=== PATIENT | female | born 1995 | race African-American/Black ===

== ENCOUNTER 2017-08-26 05:23 | Inpatient (IN) | payer BC ==
[~2017-08-26] VITALS: Ht 172.7 cm; Wt 73.2 kg
[2017-08-26] MEDS ORDERED: OXYTOCIN 30U/ 0.9% NaCL 500ML 500 ML IV PRN (05:44)
[2017-08-26] MEDS ORDERED: D5%-LACTATED RINGERS 1,000 ML IV SCH (05:44)
[2017-08-26] MEDS ORDERED: OXYTOCIN 30U/ 0.9% NaCL 500ML 500 ML IV ONE (05:44)
[2017-08-26] MEDS: LACTATED RINGERS 1,000 ML IV SCH ×4 (05:54→18:45)
[2017-08-26] MEDS ORDERED: NEWBORN KIT ONE (05:59)
[2017-08-26] MEDS ORDERED: OXYTOCIN 30U/ 0.9% NaCL 500ML 500 ML ONE ×2 (06:00→16:40)
[2017-08-26] MEDS ORDERED: TERBUTALINE 1 MG/ML, 1ML IVPush PRN ×2 (06:00)
[2017-08-26] MEDS ORDERED: CALCIUM CARBONATE 500 MG TAB.CHEW PO PRN (06:00)
[2017-08-26] MEDS ORDERED: TERBUTALINE 1 MG/ML, 1ML SQ PRN (06:00)
[2017-08-26] MEDS ORDERED: FENTANYL PF 100 MCG/2ML IV PRN (06:00)
[2017-08-26] MEDS ORDERED: ONDANSETRON 2MG/ML, 2ML IVPush PRN (06:00)
[2017-08-26 06:28] LABS: BASOPHILS # (AUTO) 0.03 x10^3/uL (0-0.1); BASOPHILS % (AUTO) 0 % (0-1); EOSINOPHILS # (AUTO) 0.08 x10^3/uL (0-0.4); EOSINOPHILS % (AUTO) 1 % (1-7); LYMPHOCYTES # (AUTO) 1.32 x10^3/uL (1-3.4); LYMPHOCYTES % (AUTO) 15 % (22-44); MD NO; MEAN CORPUSCULAR HEMOGLOBIN 25.3 pg (27.0-34.8); MEAN CORPUSCULAR HGB CONC 32.9 g/dL (32.4-35.8); MEAN CORPUSCULAR VOLUME 76.9 fL (80-100); MEAN PLATELET VOLUME 9.1 fL (7.4-10.4); MONOCYTES # (AUTO) 0.91 x10^3/uL (0.2-0.8); MONOCYTES % (AUTO) 10 % (2-9); NEUTROPHILS # (AUTO) 6.58 x10^3/uL (1.8-6.8); NEUTROPHILS % (AUTO) 74 % (42-75); PLATELET COUNT 230 x10^3/uL (130-400); RED BLOOD COUNT 5.01 x10^6/uL (3.82-5.3); RED CELL DISTRIBUTION WIDTH 16.6 % (9.6-15.2)
[2017-08-26 06:35] VITALS: BP 117/68
[2017-08-26] MEDS ORDERED: FENTANYL PF 100 MCG/2ML ONE ×2 (08:43→09:44)
[2017-08-26] MEDS: FENTANYL PF 100 MCG/2ML IVPush PRN ×2 (08:45→09:50)
[2017-08-26] MEDS ORDERED: LIDOCAINE-MPF 2% ,5ML ONE (10:13)
[2017-08-26] MEDS ORDERED: FENTANYL/BUPIV./NS/PF 250 ML EPIDCONT ONE (10:14)
[2017-08-26] MEDS ORDERED: BUPIVACAINE 0.25% ONE (10:15)
[2017-08-26] MEDS ORDERED: FENTANYL/BUPIV./NS/PF 250 ML EPIDCONT SCH (10:45)
[2017-08-26] MEDS ORDERED: EPHEDRINE 50 MG/ML, 1ML IVPush PRN (11:00)
[2017-08-26] MEDS ORDERED: NALOXONE 0.4 MG/ML, 1ML IVPush PRN (11:00)
[2017-08-26] MEDS ORDERED: LACTATED RINGERS 1,000 ML IVBOLUS PRN (11:00)
[2017-08-26] MEDS ORDERED: MEASLES,MUMPS&RUBELLA VACC/PF 0.5 ML SQ PRN (15:30)
[2017-08-26] MEDS ORDERED: RHOGAM FROM BLOOD BANK 1 NOTE EA IM/IV ONE (15:30)
[2017-08-26] MEDS ORDERED: OXYcodone/APAP 5/325MG TABLET PO PRN ×2 (15:30)
[2017-08-26] MEDS ORDERED: MISOPROSTOL 200 MCG TABLET PR PRN (15:30)
[2017-08-26] MEDS ORDERED: CARBOPROST TROMETHAMINE 250 MCG/ML, 1ML IM PRN (15:30)
[2017-08-26] MEDS ORDERED: METHYLERGONOVINE 0.2 MG/ML IM PRN (15:30)
[2017-08-26] MEDS ORDERED: ACETAMINOPHEN 325 MG TABLET PO PRN (15:30)
[2017-08-26] MEDS ORDERED: DIPH,PERTUSS(ACELL),TET VAC/PF NC IM-VACC PRN (15:30)
[2017-08-26] MEDS: OXYTOCIN 30U/ 0.9% NaCL 500ML 500 ML IV SCH (16:42)
[2017-08-26 17:20] VITALS: BP 110/70
[2017-08-26 19:15] VITALS: BP 117/68
[2017-08-26] MEDS: IBUPROFEN 600 MG TABLET PO PRN (20:16)
[2017-08-26] MEDS: DOCUSATE 100 MG CAPSULE PO PRN (20:16)
[2017-08-26] MEDS ORDERED: FLU VACC QS2017-18 (36MOS+) UP/PF 0.5 ML IM-VACC ONE (23:00)
[2017-08-27 00:15] VITALS: BP 122/76
[2017-08-27] MEDS: OXYTOCIN 30U/ 0.9% NaCL 500ML 500 ML IV SCH (01:14)
[2017-08-27 04:00] VITALS: BP 108/71
[2017-08-27] MEDS: IBUPROFEN 600 MG TABLET PO PRN ×2 (04:49→11:25)
[2017-08-27 05:27] LABS: BASOPHILS # (AUTO) 0.03 x10^3/uL (0-0.1); BASOPHILS % (AUTO) 0 % (0-1); EOSINOPHILS # (AUTO) 0.07 x10^3/uL (0-0.4); EOSINOPHILS % (AUTO) 1 % (1-7); LYMPHOCYTES # (AUTO) 1.26 x10^3/uL (1-3.4); LYMPHOCYTES % (AUTO) 10 % (22-44); MD NO; MEAN CORPUSCULAR HEMOGLOBIN 25.5 pg (27.0-34.8); MEAN CORPUSCULAR HGB CONC 32.8 g/dL (32.4-35.8); MEAN CORPUSCULAR VOLUME 77.6 fL (80-100); MEAN PLATELET VOLUME 9.4 fL (7.4-10.4); MONOCYTES # (AUTO) 0.97 x10^3/uL (0.2-0.8); MONOCYTES % (AUTO) 8 % (2-9); NEUTROPHILS # (AUTO) 9.87 x10^3/uL (1.8-6.8); NEUTROPHILS % (AUTO) 81 % (42-75); PLATELET COUNT 200 x10^3/uL (130-400); RED BLOOD COUNT 4.47 x10^6/uL (3.82-5.3); RED CELL DISTRIBUTION WIDTH 16.7 % (9.6-15.2)
[2017-08-27] MEDS: LACTATED RINGERS 1,000 ML IV SCH (05:58)
[2017-08-27 08:00] VITALS: BP 108/72
[2017-08-27] MEDS ORDERED: PRENATAL VIT/IRON/FA 1 EACH TABLET PO SCH (09:00)
[2017-08-27] MEDS: DOCUSATE 100 MG CAPSULE PO PRN (11:25)
[2017-08-27 13:00] VITALS: BP 110/72
[2017-08-27] MEDS ORDERED: FLU VACC QS2017-18 (36MOS+) UP/PF 0.5 ML IM-VACC ONE (16:22)
== END 2017-08-27 17:22 | disposition home or self-care (01) | DRG 775 ==
LOC: LDIP 05:23 → 2NW 17:13
PROVIDERS: ADMIT Obstetrics & Gynecology Maternal & Fetal Medicine; ATTEND Obstetrics & Gynecology Maternal & Fetal Medicine
PROC: 10E0XZZ Delivery of Products of Conception, External Approach (ICD-10-PCS; principal; 2017-08-26)
PROC: 10H07YZ Insertion of Other Device into Products of Conception, Via Natural or Artificial Opening (ICD-10-PCS; 2017-08-26)
PROC: 0UQMXZZ Repair Vulva, External Approach (ICD-10-PCS; 2017-08-26)
DX: O71.82 Other specified trauma to perineum and vulva (principal); Z37.0 Single live birth; Z3A.40 40 weeks gestation of pregnancy
CPT/HCPCS: 36415; 85025; 86850; 86900; 90686; 90715; J3010; J3490; J2590; J7120

== ENCOUNTER 2018-04-05 18:18 | Emergency (ER) | payer OTHER ==
[~2018-04-05] VITALS: Ht 172.7 cm; Wt 72.5 kg
[2018-04-05 18:59] LABS: MEAN CORPUSCULAR HEMOGLOBIN 28.4 pg (27.0-34.8); MEAN CORPUSCULAR HGB CONC 34.1 g/dL (32.4-35.8); MEAN CORPUSCULAR VOLUME 83.4 fL (80-100); PLATELET COUNT 249 x10^3/uL (130-400); RED BLOOD COUNT 5.49 x10^6/uL (3.82-5.3); RED CELL DISTRIBUTION WIDTH 13.5 % (9.6-15.2)
[2018-04-05 19:10] LABS: ALBUMIN 3.9 g/dL (3.4-5.0); ANION GAP 9 mmol/L (5-15); CHLORIDE 100 mmol/L (98-107)
[2018-04-05 19:14] LABS: ALANINE AMINOTRANSFERASE 17 U/L (12-78); ALKALINE PHOSPHATASE 105 U/L (45-117); BILIRUBIN,TOTAL 0.6 mg/dL (0.2-1.0); CREATININE 1.31 mg/dL (0.55-1.02); TOTAL PROTEIN 8.4 g/dL (6.4-8.2)
[2018-04-05 19:41] LABS: HCG UR SG 1.014 (1.003-1.030); MICROSCOPIC AUTO
[2018-04-05 19:47] LABS: BASOPHILS # (AUTO) 0.05 x10^3/uL (0-0.1); BASOPHILS % (AUTO) 0 % (0-1); EOSINOPHILS % (AUTO) 0 % (1-7); LYMPHOCYTES # (AUTO) 0.74 x10^3/uL (1-3.4); LYMPHOCYTES % (AUTO) 3 % (22-44); MD SCAN; MONOCYTES # (AUTO) 1.96 x10^3/uL (0.2-0.8); MONOCYTES % (AUTO) 7 % (2-9); NEUTROPHILS # (AUTO) 24.84 x10^3/uL (1.8-6.8); NEUTROPHILS % (AUTO) 90 % (42-75)
[2018-04-05 19:50] LABS: CULTURE INDICATED? YES
[2018-04-05] MEDS ORDERED: SODIUM CHLORIDE FLUSH 10ML SYR IVF ONE (20:00)
[2018-04-05] MEDS ORDERED: KETOROLAC 30 MG/1 ML IVPush ONE (20:00)
[2018-04-05] MEDS ORDERED: CEFTRIAXONE 1,000 MG in SODIUM CHLORIDE 0.9% 50 ML IVPB ONE (20:00)
[2018-04-05] MEDS ORDERED: CEFTRIAXONE PMX 1GM/50ML 50 ML ONE (20:05)
[2018-04-05] MEDS ORDERED: KETOROLAC 30 MG/1 ML ONE (20:05)
[2018-04-05] MEDS ORDERED: ONDANSETRON ODT 4 MG ONE (20:26)
[2018-04-05] MEDS ORDERED: ONDANSETRON ODT 4 MG PO ONE ×2 (20:30)
[2018-04-05] MEDS ORDERED: SODIUM CHLORIDE 0.9% 1,000ML IVBOLUS ONE (21:00)
[2018-04-05 21:16] VITALS: BP 115/68
== END 2018-04-05 21:31 | disposition home or self-care (01) ==
LOC: ED 21:10
DX: N10 Acute pyelonephritis (principal)
CPT/HCPCS: 36415; 80053; 81001; 81025; 85025; 87077; 87086; 87186; 96365; 96375; 99284; J0696; J1885; J7030; Q0162